=== PATIENT | male | born 1975 | race Caucasian/White ===

== ENCOUNTER 2016-11-11 10:30 | Emergency (ER) | payer MEDICAID ==
[2016-11-11 10:48] VITALS: BMI 40.3
[2016-11-11 10:51] VITALS: RESP 18; O2SAT 98
--- NOTE | 2016-11-11 11:43 | C.PDOC ---
History Of Present Illness 41-year-old male, presents to the emergency department with complaints of chills , subjective fever and body aches since yesterday. Associated mild non- productive cough. Patient denies dizziness, neck pain, rashes, sick contacts, or any other associated symptoms. No other complaints at this time. Time Seen by Provider: 11/11/16 11:05 Chief Complaint (Nursing): Dizziness/Lightheaded History Per: Patient History/Exam Limitations: no limitations Onset/Duration Of Symptoms: Days Current Symptoms Are (Timing): Still Present Severity: Moderate Past Medical History Reviewed: Historical Data, Nursing Documentation, Vital Signs Vital Signs: Last Vital Signs Temp 100.2 F H 11/11/16 11:04 Pulse 101 H 11/11/16 10:49 Resp 18 11/11/16 10:49 BP 114/78 11/11/16 10:49 Pulse Ox 98 11/11/16 11:45 - Medical History PMH: Asthma (childhood) - [facility] Procedures OTHER SKIN & SUBQ I D (02/02/14) Family History: States: Unknown Family Hx - Social History Hx Tobacco Use: No Hx Alcohol Use: No Hx Substance Use: No - Immunization History Hx Tetanus Toxoid Vaccination: No Hx Influenza Vaccination: No Hx Pneumococcal Vaccination: No Review Of Systems Except As Marked, All Systems Reviewed And Found Negative. Constitutional: Positive for: Fever, Chills, Malaise Cardiovascular: Negative for: Chest Pain, Palpitations Respiratory: Positive for: Cough. Negative for: Shortness of Breath Gastrointestinal: Negative for: Nausea, Vomiting Musculoskeletal: Positive for: Shoulder Pain. Negative for: Neck Pain, Back Pain Skin: Negative for: Rash Neurological: Negative for: Weakness, Numbness, Headache, Dizziness Physical Exam - Physical Exam Appears: Non-toxic, No Acute Distress Skin: Warm, Dry, No Rash Head: Atraumatic, Normacephalic Eye(s): bilateral: Normal Inspection, PERRL, EOMI Nose: Normal Oral Mucosa: Moist Lips: Normal Appearing Neck: Normal ROM, Supple Cardiovascular: Rhythm Regular Respiratory: Normal Breath Sounds, No Accessory Muscle Use Extremity: Normal ROM Neurological/Psych: Oriented x3, Normal Speech ED Course And Treatment O2 Sat by Pulse Oximetry: 98 Medical Decision Making Medical Decision Making: suspected viral syndrome, myalgias vs influenza. pt with normal rom to b/l shoulder no erythema. no clinical concern for infected joints. 1200: pt ambulatory with steady gait, neuro intact, pain improved. imaging neg as read by me. ua neg. suspected viral syndrome. advise outpt f/u and return precautions Disposition - Disposition Referrals: [facility] [Outside] [facility] [Outside] [facility] [place] [Outside] Disposition: HOME/ ROUTINE Disposition Time: 12:08 Condition: STABLE Additional Instructions: please follow up with your doctor/ specialist. return to er with worsening symptoms or concerns. Prescriptions: Naproxen 500 mg PO BID PRN #14 tab PRN Reason: Pain, Mild (1-3) Instructions: Viral Syndrome (ED) - Clinical Impression Clinical Impression: Viral syndrome - Scribe Statement The provider has reviewed the documentation as recorded by the Scribcortez Chavez All medical record entries made by the Scribe were at my direction and personally dictated by me. I have reviewed the chart and agree that the record accurately reflects my personal performance of the history, physical exam, medical decision making, and the department course for this patient. I have also personally directed, reviewed, and agree with the discharge instructions and disposition.
[2016-11-11 12:03] LABS: RBC URINE < 1 /hpf (0-3); URINE BILIRUBIN NEGATIVE (NEGATIVE); URINE BLOOD NEGATIVE (NEGATIVE); URINE COLOR Yellow (YELLOW); URINE GLUCOSE (UA) NORMAL (Normal); URINE KETONE NEGATIVE (NEGATIVE); URINE LEUKOCYTE ESTERASE NEG Leu/uL (Negative); URINE PROTEIN NEGATIVE (NEGATIVE); URINE UROBILINOGEN NORMAL mg/dL (0.2-1.0); WBC URINE 1 /hpf (0-5)
[2016-11-11 12:20] VITALS: BP 117/72; PULSE 98; TEMP 98.1
--- NOTE | 2016-11-11 16:37 | RAD ---
PROCEDURE: Radiographs of the Right Shoulder HISTORY: shoulder pain COMPARISON: No prior. FINDINGS: BONES: Normal. No fracture. JOINTS: Normal. Glenohumeral and acromioclavicular joints preserved. No osteoarthritis. SOFT TISSUES: Normal. OTHER FINDINGS: None. IMPRESSION: Normal radiographs of the right shoulder.
--- NOTE | 2016-11-11 16:37 | RAD ---
PROCEDURE: Radiographs of the Left Shoulder HISTORY: shoulder pain COMPARISON: No prior. FINDINGS: BONES: Normal. No fracture. JOINTS: Normal. Glenohumeral and acromioclavicular joints preserved. No osteoarthritis. SOFT TISSUES: Normal. OTHER FINDINGS: None. IMPRESSION: Normal radiographs of the left shoulder.
--- NOTE | 2016-11-11 16:37 | RAD ---
HISTORY: cough COMPARISON: 09/18/2016 TECHNIQUE: Chest PA and lateral FINDINGS: LUNGS: No active pulmonary disease. PLEURA: No significant pleural effusion identified. No pneumothorax apparent. CARDIOVASCULAR: Normal. OSSEOUS STRUCTURES: No significant abnormalities. VISUALIZED UPPER ABDOMEN: Normal. OTHER FINDINGS: None. IMPRESSION: No active disease.
== END 2016-11-11 12:20 | disposition home or self-care (01) ==
LOC: C.ER 10:30
DX: B34.9 Viral infection, unspecified (principal)

== ENCOUNTER 2016-11-14 22:11 | Emergency (ER) | payer MEDICAID ==
[2016-11-14 22:12] VITALS: BMI 40.3
--- NOTE | 2016-11-15 02:15 | CT ---
EXAM: CT Thoracic Spine Without Intravenous Contrast. CLINICAL HISTORY: 41 years old, male; Pain; Pain in thoracic spine; Additional info: Midline pain TECHNIQUE: Axial computed tomography images of the thoracic spine without intravenous contrast. This CT exam was performed using one or more of the following dose reduction techniques: automated exposure control, adjustment of the mA and/or kV according to patient size, and/or use of iterative reconstruction technique. Coronal and sagittal reformatted images were created and reviewed. COMPARISON: No relevant prior studies available. FINDINGS: Vertebrae: No acute fracture. Schmorl's nodes at several levels. Discs/spinal canal/neural foramina: No significant spinal canal stenosis. Soft tissues: Unremarkable. Lungs: Mild atelectasis. Mediastinum: Small hiatal hernia. IMPRESSION: 1. No fracture. 2. If back pain persists, consider MRI for further evaluation. 3. Incidental/non-acute findings are described above.
--- NOTE | 2016-11-15 03:18 | C.PDOC ---
History Of Present Illness 41 y/o male presents to the ED with complains of Time Seen by Provider: 11/15/16 00:22 Chief Complaint (Nursing): Back Pain History Per: Patient History/Exam Limitations: no limitations Past Medical History Reviewed: Historical Data, Nursing Documentation, Vital Signs Vital Signs: Last Vital Signs Temp 98.4 F 11/14/16 22:47 Pulse 95 H 11/14/16 22:47 Resp 20 11/14/16 22:47 BP 116/75 11/14/16 22:47 Pulse Ox 97 11/14/16 22:47 - Medical History PMH: Asthma (childhood) - [facility] Procedures OTHER SKIN & SUBQ I D (02/02/14) Family History: States: Unknown Family Hx - Social History Hx Tobacco Use: No Hx Alcohol Use: No Hx Substance Use: No - Immunization History Hx Tetanus Toxoid Vaccination: No Hx Influenza Vaccination: No Hx Pneumococcal Vaccination: No ED Course And Treatment O2 Sat by Pulse Oximetry: 97 - CT Scan/US CT thoracic Other Rad Studies (CT/US): Read By Radiologist, Radiology Report Reviewed CT/US Interpretation: EXAM: CT Thoracic Spine Without Intravenous Contrast. CLINICAL HISTORY: 41 years old, male; Pain; Pain in thoracic spine; Additional info: Midline pain. TECHNIQUE: Axial computed tomography images of the thoracic spine without intravenous contrast. This CT. exam was performed using one or more of the following dose reduction techniques: automated. exposure control, adjustment of the mA and/or kV according to patient size, and/or use of iterative. reconstruction technique. Coronal and sagittal reformatted images were created and reviewed. COMPARISON: No relevant prior studies available. FINDINGS: Vertebrae: No acute fracture. Schmorl's nodes at several levels. Discs/spinal canal/neural foramina: No significant spinal canal stenosis. Soft tissues: Unremarkable. Lungs: Mild atelectasis. Mediastinum: Small hiatal hernia. IMPRESSION: 1. No fracture. 2. If back pain persists, consider MRI for further evaluation. 3. Incidental/non-acute findings are described above. Thank you for allowing us to participate in the care of your patient. Dictated and Authenticated by: Sidney Arias MD. 11/15/2016 2:15 AM Eastern Time ([place] & [place])
--- NOTE | 2016-11-15 03:21 | C.PDOC ---
History Of Present Illness 41 y/o male c/o upper back pain starting wed morning on waking up and worse with movement of arms. pt was seen in ED several days ago for shoulder pain and was taking naproxen, which he says didn't help this pain. pt stayed in bed all day without taking anything and only took a naproxen at 6 pm. pt denies chest pain, shortness of breath, fever, chills, cough, no abdominal pain, n/v/d/ Time Seen by Provider: 11/15/16 00:22 Chief Complaint (Nursing): Back Pain Past Medical History Reviewed: Historical Data, Nursing Documentation, Vital Signs Vital Signs: Last Vital Signs Temp 98.0 F 11/15/16 03:46 Pulse 92 H 11/15/16 03:46 Resp 16 11/15/16 03:46 BP 129/83 11/15/16 03:46 Pulse Ox 97 11/20/16 13:55 - Medical History PMH: Asthma (childhood) Surgical History: No Surg Hx - [facility] Procedures OTHER SKIN & SUBQ I D (02/02/14) Family History: States: Unknown Family Hx - Social History Hx Tobacco Use: No Hx Alcohol Use: No Hx Substance Use: No - Immunization History Hx Tetanus Toxoid Vaccination: No Hx Influenza Vaccination: No Hx Pneumococcal Vaccination: No Review Of Systems Constitutional: Negative for: Fever, Chills Cardiovascular: Negative for: Chest Pain, Palpitations, Orthopnea, Light Headedness Respiratory: Negative for: Cough, Shortness of Breath Gastrointestinal: Negative for: Nausea, Vomiting, Abdominal Pain, Diarrhea Musculoskeletal: Positive for: Neck Pain, Shoulder Pain, Back Pain Skin: Negative for: Rash Neurological: Negative for: Weakness, Numbness Physical Exam - Physical Exam Appears: Non-toxic, Other (uncomfortably) Skin: Normal Color, Warm, Dry Head: Atraumatic, Normacephalic Chest: Symmetrical, Deformity, No Tenderness Cardiovascular: Rhythm Regular, No Murmur Respiratory: No Decreased Breath Sounds, No Rales, No Rhonchi, No Wheezing Gastrointestinal/Abdominal: Normal Exam, Soft, No Tenderness Back: Normal Inspection, Vertebral Tenderness (along upper thoracic spine, no erythema,, warmth or swelling noted) Neurological/Psych: Oriented x3, Normal Speech, Normal Cognition, Normal Motor, Normal Sensation ED Course And Treatment O2 Sat by Pulse Oximetry: 97 Pulse Ox Interpretation: Normal - CT Scan/US CT thoracic Other Rad Studies (CT/US): Read By Radiologist, Radiology Report Reviewed CT/US Interpretation: EXAM: CT Thoracic Spine Without Intravenous Contrast. CLINICAL HISTORY: 41 years old, male; Pain; Pain in thoracic spine; Additional info: Midline pain. TECHNIQUE: Axial computed tomography images of the thoracic spine without intravenous contrast. This CT. exam was performed using one or more of the following dose reduction techniques: automated. exposure control, adjustment of the mA and/or kV according to patient size, and/or use of iterative. reconstruction technique. Coronal and sagittal reformatted images were created and reviewed. COMPARISON: No relevant prior studies available. FINDINGS: Vertebrae: No acute fracture. Schmorl's nodes at several levels. Discs/spinal canal/neural foramina: No significant spinal canal stenosis. Soft tissues: Unremarkable. Lungs: Mild atelectasis. Mediastinum: Small hiatal hernia. IMPRESSION: 1. No fracture. 2. If back pain persists, consider MRI for further evaluation. 3. Incidental/non-acute findings are described above. Thank you for allowing us to participate in the care of your patient. Dictated and Authenticated by: Sidney Arias MD. 11/15/2016 2:15 AM Eastern Time ([place] & [place]) Progress Note: pt has been resting comfrtbaly all night awaiting ct results. pt denies any ivda. pt refusing toradol, will give ibuprofen and will d/c with flexeril and pmd f/;u Reevaluation Time: 03:57 Reassessment Condition: Improved Medical Decision Making Medical Decision Making: pt with midline back pain on spine, will get ct to r/o patholgy. Disposition Counseled Patient/Family Regarding: Diagnosis, Need For Followup, Rx Given - Disposition Referrals: [facility] [Outside] [facility] [Outside] Disposition: HOME/ ROUTINE Disposition Time: 03:57 Condition: IMPROVED Additional Instructions: Take naproxen as prescribed. Take muscle relaxant when at home or before bed, do not drive or operate machinery while taking this medication. Follow up with your doctor in 1-2 days, Return to ER for any worse symptoms. Prescriptions: Cyclobenzaprine [Cyclobenzaprine HCl] 10 mg PO TID #9 tab Instructions: Back Pain (ED) Forms: General Discharge Instructions - Clinical Impression Clinical Impression: Thoracic back pain
[2016-11-15 03:47] VITALS: BP 129/83; PULSE 92; RESP 16; TEMP 98
[2016-11-15 03:52] VITALS: O2SAT 97
== END 2016-11-15 04:05 | disposition home or self-care (01) ==
LOC: C.ER 22:11
DX: M54.6 Pain in thoracic spine (principal)

== ENCOUNTER 2018-04-10 11:30 | Emergency (ER) | payer BC, MEDICAID ==
[2018-04-10 11:30] VITALS: BMI 40.3
[2018-04-10] MEDS ORDERED: Sodium Chloride 0.9% 1,000 ML IV ONE (11:50)
[2018-04-10 11:55] VITALS: RESP 18
--- NOTE | 2018-04-10 11:58 | C.PDOC ---
History Of Present Illness 43 year old male patient presents to the ER with c/o dizziness this morning. Patient reports it feels like the room is spinning. Patient denies generalized pain, blurry vision, headache and trauma. Time Seen by Provider: 04/10/18 11:38 Chief Complaint (Nursing): Dizziness/Lightheaded History Per: Patient History/Exam Limitations: no limitations Onset/Duration Of Symptoms: Hrs Current Symptoms Are (Timing): Still Present Past Medical History Reviewed: Historical Data, Nursing Documentation, Vital Signs Vital Signs: Last Vital Signs Temp 98 F 04/10/18 13:45 Pulse 86 04/10/18 13:45 Resp 18 04/10/18 13:45 BP 126/73 04/10/18 13:45 Pulse Ox 96 04/10/18 14:51 - Medical History PMH: Asthma (childhood) - [facility] Procedures OTHER SKIN & SUBQ I D (02/02/14) Family History: States: Unknown Family Hx - Social History Hx Tobacco Use: No Hx Alcohol Use: No Hx Substance Use: No - Immunization History Hx Tetanus Toxoid Vaccination: No Hx Influenza Vaccination: No Hx Pneumococcal Vaccination: No Review Of Systems Except As Marked, All Systems Reviewed And Found Negative. Constitutional: Negative for: Other (trauma ) Eyes: Negative for: Pain, Vision Change Neurological: Positive for: Dizziness. Negative for: Headache Physical Exam - Physical Exam Appears: Non-toxic, No Acute Distress Skin: Normal Color, Warm, Dry Head: Atraumatic, Normacephalic Eye(s): bilateral: Normal Inspection, PERRL, EOMI Ear(s): Bilateral: Normal Oral Mucosa: Moist Throat: Normal Neck: Normal ROM, Supple Chest: Symmetrical, No Deformity Cardiovascular: Rhythm Regular Respiratory: Normal Breath Sounds Gastrointestinal/Abdominal: Soft, No Tenderness Back: No CVA Tenderness Extremity: Normal ROM (x4) Neurological/Psych: Oriented x3, Normal Speech Gait: Steady ED Course And Treatment - Laboratory Results Result Diagrams: 04/10/18 12:03 04/10/18 12:03 ECG: Interpreted By Me, Viewed By Me ECG Rhythm: Sinus Rhythm Rate From EC O2 Sat by Pulse Oximetry: 96 (RA) Pulse Ox Interpretation: Normal - CT Scan/US CT head Other Rad Studies (CT/US): Read By Radiologist, Radiology Report Reviewed CT/US Interpretation: Accession No. : [id number]. Patient Name / ID : JOE Carmen / [id number]. Exam Date : 04/10/2018 12:22:53 ( Approved ). Study Comment : Sex / Age : M / 43Y. Creator : Nelly Diaz. Dictator : Becki Rocha V. Picking Supervisor : Cottage Parent : Becki Ga V. Approver2 : Report Date : 04/10/2018 12:26:05. My Comment : . Date of service: 04/10/2018. PROCEDURE: CT HEAD WITHOUT CONTRAST. HISTORY: r/o ICH. COMPARISON: None available. TECHNIQUE: Axial computed tomography images were obtained through the head/brain without intravenous contrast. Radiation dose: Total exam DLP = 894 mGy-cm. This CT exam was performed using one or more of the following dose reduction techniques : Automated exposure control, adjustment of the mA and/or kV according to patient size, and/or use of iterative reconstruction technique. FINDINGS: HEMORRHAGE: No intracranial hemorrhage. BRAIN: No mass effect or edema. No atrophy or chronic microvascular ischemic changes. VENTRICLES: Unremarkable. No hydrocephalus. CALVARIUM: Unremarkable. PARANASAL SINUSES: Minimal ethmoidal sinus mucosal inflammatory changes. MASTOID AIR CELLS: Unremarkable as visualized. No inflammatory changes. OTHER FINDINGS: Right high posterior parietal scalp soft tissue swelling. No calvarial subjacent fracture. IMPRESSION: Right by a posterior parietal scalp soft tissue swelling compatible with hematoma here. No subjacent calvarial fracture. No intracranial hemorrhage or mass effect. Incidental ethmoidal sinus mild inflammatory changes. Medical Decision Making Medical Decision Making: Impression: dizziness Plans: -- EKG -- CT head -- blood work -- Glucose POC -- antivert -- reglan -- IV fluids Reassess: Patient is resting comfortably. Tolerating PO. Patient remains stable and afebrile. Patient is instructed to f/u with PMD in 1-2 days. Disposition - Disposition Referrals: [facility] [Outside] [facility] [Outside] Disposition: HOME/ ROUTINE Disposition Time: 13:00 Condition: IMPROVED Additional Instructions: ILEANA DIAZ, thank you for letting us take care of you today. Your provider was Lj Cruz DO and you were treated for DIZZINESS. The emergency medical care you received today was directed at your acute symptoms. If you were prescribed any medication, please fill it and take as directed. It may take several days for your symptoms to resolve. Return to the Emergency Department if your symptoms worsen, do not improve, or if you have any other problems. Please contact your doctor or call one of the physicians/clinics you have been referred to that are listed on the Patient Visit Information form that is included in your discharge packet. Bring any paperwork you were given at discharge with you along with any medications you are taking to your follow up visit. Our treatment cannot replace ongoing medical care by a primary care provider outside of the emergency department. Thank you for allowing the [facility] team to be part of your care today. Follow up with our clinic or your primary doctor in 2-3 days for re-evaluation and further management. Prescriptions: Meclizine [Meclizine*] 25 mg PO Q6 PRN #20 tab PRN Reason: Dizziness Instructions: Vertigo (a Type of Dizziness) (DC) Forms: Lagiar ([place]i), Work Excuse - Clinical Impression Clinical Impression: Dizziness - Scribe Statement The provider has reviewed the documentation as recorded by the Ivette Benitez Do Provider Attestation: All medical record entries made by the Ivette were at my direction and personally dictated by me. I have reviewed the chart and agree that the record accurately reflects my personal performance of the history, physical exam, medical decision making, and the department course for this patient. I have also personally directed, reviewed, and agree with the discharge instructions and disposition.
[2018-04-10 12:10] LABS: BASO # 0.1 K/uL (0.0-0.2); BASO % 0.7 % (0.0-2.0); EOS # 0.3 K/uL (0.0-0.7); EOS % 2.6 % (0.0-4.0); HEMOGLOBIN 14.7 g/dL (12.0-18.0); LYMPH # 3.8 K/uL (1.0-4.3); LYMPH % 38.7 % (20.0-40.0); MEAN CELL VOLUME 89.3 fL (80.0-94.0); MEAN CORPUSCULAR HEMOGLOBIN 30.5 pg (27.0-31.0); MEAN CORPUSCULAR HGB CONC 34.2 g/dL (33.0-37.0); MONO % 9.8 % (0.0-10.0); NEUT # 4.7 K/uL (1.8-7.0); NEUT % 48.2 % (50.0-75.0); NRBC % 0.1 % (0.0-2.0); RBC 4.83 Mil/uL (4.40-5.90); WHITE BLOOD COUNT 9.7 K/uL (4.8-10.8)
[2018-04-10 12:22] LABS: ALB/GLOB RATIO 1.5 (1.0-2.1); ALBUMIN 4.7 g/dL (3.5-5.0); ALT/SGPT 62 U/L (21-72); AST/SGOT 27 U/L (17-59); BLOOD UREA NITROGEN 13 mg/dL (9-20); CALCIUM 9.6 mg/dl (8.6-10.4); GFR NON-AFRICAN AMERICAN > 60
--- NOTE | 2018-04-10 12:35 | CT ---
Date of service: 04/10/2018 PROCEDURE: CT HEAD WITHOUT CONTRAST. HISTORY: r/o ICH COMPARISON: None available. TECHNIQUE: Axial computed tomography images were obtained through the head/brain without intravenous contrast. Radiation dose: Total exam DLP = 894 mGy-cm. This CT exam was performed using one or more of the following dose reduction techniques: Automated exposure control, adjustment of the mA and/or kV according to patient size, and/or use of iterative reconstruction technique. FINDINGS: HEMORRHAGE: No intracranial hemorrhage. BRAIN: No mass effect or edema. No atrophy or chronic microvascular ischemic changes. VENTRICLES: Unremarkable. No hydrocephalus. CALVARIUM: Unremarkable. PARANASAL SINUSES: Minimal ethmoidal sinus mucosal inflammatory changes. MASTOID AIR CELLS: Unremarkable as visualized. No inflammatory changes. OTHER FINDINGS: Right high posterior parietal scalp soft tissue swelling. No calvarial subjacent fracture. IMPRESSION: Right by a posterior parietal scalp soft tissue swelling compatible with hematoma here. No subjacent calvarial fracture. No intracranial hemorrhage or mass effect. Incidental ethmoidal sinus mild inflammatory changes.
[2018-04-10 13:46] VITALS: BP 126/73; PULSE 86; TEMP 98
[2018-04-10 14:39] VITALS: O2SAT 96
--- NOTE | 2018-04-11 18:00 | CARD ---
APPROVED REPORT Date of service: 04/10/2018 EKG Measurement Heart [id number] <Conclusion> Normal sinus rhythm Normal ECG
== END 2018-04-10 13:46 | disposition home or self-care (01) ==
LOC: C.ER 11:30
DX: R42 Dizziness and giddiness (principal)
CPT/HCPCS: 70450; 80053; 82948; 84484; 85025; 93005; 96374; 99285; J2765; J7030